=== PATIENT | male | born 1945 | race Caucasian/White ===

== ENCOUNTER 2018-04-22 19:19 | Emergency (ER) | payer BC, MEDICARE ==
[2018-04-22 19:20] VITALS: BMI 27.1
[2018-04-22 19:51] VITALS: TEMP 97.8; O2SAT 100
--- NOTE | 2018-04-22 20:24 | ED PDOC ---
Arrival/HPI - General Chief Complaint: GI Problem Time Seen by Provider: 04/22/18 19:44 Historian: Patient - History of Present Illness Narrative History of Present Illness (Text): 04/22/18 20:21 73 year old male, with no significant past medical history, presents with abdominal pain, since Saturday. Patient informs having associated cramping and vomiting as well. Patient states he has been "belching" a lot, and it seems to relieve the pain whenever he does. Patient denies any fever, chills, headache, dizziness, chest pain, shortness of breath, cough, diarrhea, back pain, neck pain, urinary/bowel changes, or any other complaint. Time/Duration: < week (3 days) Symptom Course: Unchanged Past Medical History - Provider Review Nursing Documentation Reviewed: Yes - Tetanus Immunization Tetanus Immunization: Unknown - Cardiac Hx Cardiac Disorders: Yes Hx Hypertension: Yes - Pulmonary Hx Respiratory Disorders: No - Neurological Hx Neurological Disorder: No - HEENT Hx HEENT Disorder: No - Renal Hx Renal Disorder: No - Endocrine/Metabolic Hx Endocrine Disorders: No - Hematological/Oncological Hx Blood Disorders: No - Integumentary Hx Dermatological Disorder: No - Musculoskeletal/Rheumatological Hx Musculoskeletal Disorders: No - Gastrointestinal Hx Gastrointestinal Disorders: Yes Other/Comment: HERNIA - Genitourinary/Gynecological Hx Genitourinary Disorders: No - Psychiatric Hx Psychophysiologic Disorder: No Hx Substance Use: No - Past Surgical History Past Surgical History: No Previous - Surgical History Other/Comment: REMOVAL OF CORN FROM FOOT - Suicidal Assessment Feels Threatened In Home Enviroment: No Family/Social History - Physician Review Nursing Documentation Reviewed: Yes Family/Social History: No Known Family HX Smoking Status: Never Smoked Hx Alcohol Use: No Hx Substance Use: No Hx Substance Use Treatment: No Allergies/Home Meds Allergies/Adverse Reactions: Allergies No Known Allergies Allergy (Verified 04/22/18 19:37) Home Medications: Home Meds Medication Instructions Recorded Confirmed Amlodipine Besylate [Norvasc] 7.5 mg PO DAILY 10/27/14 10/27/14 Aspirin [Aspirin Chewable] 81 mg PO DAILY 10/27/14 04/22/18 Losartan [Cozaar] 100 mg PO DAILY 04/22/18 04/22/18 Review of Systems - Physician Review All systems were reviewed & negative as marked: Yes - Review of Systems Constitutional: absent: Fevers, Night Sweats Respiratory: absent: SOB, Cough Cardiovascular: absent: Chest Pain Gastrointestinal: Abdominal Pain, Vomiting Musculoskeletal: absent: Back Pain, Neck Pain Neurological: absent: Headache, Dizziness Physical Exam Vital Signs Reviewed: Yes Vital Signs Temp Pulse Resp BP Pulse Ox 04/22/18 19:38 97.8 F 64 16 159/87 H 100 Temperature: Afebrile Blood Pressure: Hypertensive Pulse: Regular Respiratory Rate: Normal Appearance: Positive for: Well-Appearing, Non-Toxic, Comfortable Pain Distress: None Mental Status: Positive for: Alert and Oriented X 3 - Systems Exam Head: Present: Atraumatic, Normocephalic Pupils: Present: PERRL Extroacular Muscles: Present: EOMI Conjunctiva: Present: Normal Mouth: Present: Moist Mucous Membranes Neck: Present: Normal Range of Motion Respiratory/Chest: Present: Clear to Auscultation, Good Air Exchange. No: Respiratory Distress, Accessory Muscle Use Cardiovascular: Present: Regular Rate and Rhythm, Normal S1, S2. No: Murmurs Abdomen: Present: Hernias (Large inguinal hernia on left side). No: Tenderness, Distention, Normal Bowel Sounds (Distant Bowel Sounds) Back: Present: Normal Inspection Upper Extremity: Present: Normal Inspection. No: Cyanosis, Edema Lower Extremity: Present: Normal Inspection. No: Edema Neurological: Present: GCS=15, CN II-XII Intact, Speech Normal Skin: Present: Warm, Dry, Normal Color. No: Rashes Psychiatric: Present: Alert, Oriented x 3, Normal Insight, Normal Concentration Medical Decision Making ED Course and Treatment: 04/22/18 20:27 Impression: 73 year old male presents with abdominal pain. Plan: -- EKG -- Labs -- Urinalysis -- Reassess and disposition Prior Visits: Notes and results from previous visits were reviewed. Progress Notes: 04/23/18 21:05 oral and maxillofacial surgery resident was contacted. Came and reduced hernia. pt feesl better voided post no suazo required will dc to follow up with dr devlin - EKG Interpretation EKG Interpretation (Text): 04/23/18 03:58 sinus bradycardia rate 59 nssts changes - Scribe Statement The provider has reviewed the documentation as recorded by the Pamelaiblissy Butterfield Provider Scribe Attestation: All medical record entries made by the Scribe were at my direction and p ersonally dictated by me. I have reviewed the chart and agree that the record accurately reflects my personal performance of the history, physical exam, medical decision making, and the department course for this patient. I have also personally directed, reviewed, and agree with the discharge instructions and disposition. Disposition/Present on Arrival - Present on Arrival Any Indicators Present on Arrival: No History of DVT/PE: No History of Uncontrolled Diabetes: No Urinary Catheter: No History of Decub. Ulcer: No History Surgical Site Infection Following: None - Disposition Have Diagnosis and Disposition been Completed?: Yes Diagnosis: Inguinal hernia Disposition: HOME/ ROUTINE Disposition Time: 02:00 Condition: IMPROVED Discharge Instructions (ExitCare): Inguinal and Femoral (Groin) Hernias Referrals: Perez Devlin MD [Staff Provider] - Follow up with primary Forms: [employer] (Danish)
[2018-04-22 20:33] LABS: ALB/GLOB RATIO 1.2 (1.1-1.8); ALBUMIN 4.1 g/dL (3.0-4.8); ALT/SGPT 33 U/L (7-56); AMYLASE 153 U/L (35-125); AST/SGOT 26 U/L (17-59); BLOOD UREA NITROGEN 12 mg/dL (7-21); CALCIUM 10.1 mg/dL (8.4-10.5); GFR NON-AFRICAN AMERICAN > 60; LIPASE 106 U/L (23-300)
[2018-04-22 20:40] LABS: BASO # 0.01 K/mm3 (0.0-2.0); BASO % 0.2 % (0.0-3.0); EOS % 0.9 % (1.5-5.0); GRAN # 3.65 (1.4-6.5); HEMOGLOBIN 13.7 g/dL (14.0-18.0); LYMPH # 0.8 (1.2-3.4); LYMPH % 16.2 % (22.0-35.0); MEAN CELL VOLUME 82.2 fl (80.0-105.0); MEAN CORPUSCULAR HEMOGLOBIN 26.5 pg (25.0-35.0); MEAN CORPUSCULAR HGB CONC 32.2 g/dl (31.0-37.0); MEAN PLATELET VOLUME 10.5 fl (7.0-11.0); MONO # 0.2 (0.1-0.6); MONO % 4.7 % (1.0-6.0); RBC 5.17 10^6/uL (3.5-6.1); RED CELL DISTRIBUTION WIDTH 13.6 % (11.5-14.5); WHITE BLOOD COUNT 4.7 10^3/ul (4.5-11.0)
[2018-04-22 20:44] LABS: TROPONIN I 0.01 ng/mL
[2018-04-22 20:49] LABS: INR 1.05; PARTIAL THROMBOPLASTIN TIME 30.2 Seconds (25.1-36.5)
[2018-04-22] MEDS ORDERED: Iohexol 350 MG/100 ML VIAL ONE (23:09)
--- NOTE | 2018-04-23 01:28 | CP.PCM.CON ---
History of Present Illness - History of Present Illness History of Present Illness: Surgery: Dr. Chavez Reason for consult: left inguinal hernia, possible incarceration CC: bloating, gas, nausea since Saturday HPI: Patient is a 73 y/o male w/ pmhx of HTN, inguinal hernia, and BPH who presents to ED complaining of "stomach issues" since Saturday. He reports feeling some "discomfort" to the lower abdomen on the left which started Saturday. He noticed some abdominal bloating and reports would feel somewhat better with belching. He does report an episode of vomiting on Saturday which he took pepto bismol for and it helped the symptoms. He states he has had a difficulty having bowel movement for the past 3-4 days as well. He reports hard small stools which are abnormal for him. He reports passing flatus since Saturday however. He does state he has had a left groin bulge since 2010 that wound appear and go away which was then diagnosed by his PMD as a hernia. He reports noticing a large bulge to the L groin which has been persistent for the last year. He has not tried to "reduce" the bulge himself. He does state frequently he can feel gas and "rumbling" in his scrotum. He reports decreased po intake due to "abdominal discomfort", denies further episodes of vomiting. He denies chest pain, SOB, f/c, hematochezia. He chronically reports difficulty urination due to his BPH which he takes medications for. PMH: HTN, BPH, L inguinal hernia PSH: right foot surgery as a child Social: denies etoh, tobacco, drug use NKDA Review of Systems - Constitutional Constitutional: absent: Fatigue, Fever, Weight Loss - EENT Eyes: absent: Blurred Vision, Change in Vision Nose/Mouth/Throat: absent: Nasal Congestion, Sinus Pain - Cardiovascular Cardiovascular: absent: Chest Pain, Syncope - Respiratory Respiratory: absent: Cough, Wheezing - Gastrointestinal Gastrointestinal: Abdominal Pain, Belching, Bloating, Constipation. absent: Excessive Flatus, Heartburn, Hematochezia, Loose Stools, Nausea, Vomiting - Genitourinary Genitourinary: Difficulty Urinating. absent: Hematuria, Pyuria - Musculoskeletal Musculoskeletal: absent: Back Pain, Neck Pain - Integumentary Integumentary: absent: Skin Ulcer, Sores - Neurological Neurological: absent: Dizziness, Numbness - Psychiatric Psychiatric: absent: Confusion, Depression - Endocrine Endocrine: absent: Polydipsia, Polyphagia - Hematologic/Lymphatic Hematologic: absent: Easy Bleeding, Easy Bruising Past Patient History - Tetanus Immunizations Tetanus Immunization: Unknown - Past Social History Smoking Status: Never Smoked - CARDIAC Hx Cardiac Disorders: Yes Hx Hypertension: Yes - PULMONARY Hx Respiratory Disorders: No - NEUROLOGICAL Hx Neurological Disorder: No - HEENT Hx HEENT Problems: No - RENAL Hx Chronic Kidney Disease: No - ENDOCRINE/METABOLIC Hx Endocrine Disorders: No - HEMATOLOGICAL/ONCOLOGICAL Hx Blood Disorders: No - INTEGUMENTARY Hx Dermatological Problems: No - MUSCULOSKELETAL/RHEUMATOLOGICAL Hx Musculoskeletal Disorders: No - GASTROINTESTINAL Hx Gastrointestinal Disorders: Yes Other/Comment: HERNIA - GENITOURINARY/GYNECOLOGICAL Hx Genitourinary Disorders: No - PSYCHIATRIC Hx Psychophysiologic Disorder: No Hx Substance Use: No - SURGICAL HISTORY Other/Comment: REMOVAL OF CORN FROM FOOT Meds Allergies/Adverse Reactions: Allergies Allergy/AdvReac Type Severity Reaction Status Date / Time No Known Allergies Allergy Verified 04/22/18 19:37 Physical Exam - Constitutional Appears: Well, Non-toxic, No Acute Distress - Head Exam Head Exam: ATRAUMATIC, NORMOCEPHALIC - Eye Exam Eye Exam: EOMI, Normal appearance - ENT Exam ENT Exam: Mucous Membranes Moist - Respiratory Exam Respiratory Exam: NORMAL BREATHING PATTERN. absent: Respiratory Distress - Cardiovascular Exam Cardiovascular Exam: REGULAR RHYTHM. absent: Tachycardia - GI/Abdominal Exam GI & Abdominal Exam: Distended, Normal Bowel Sounds, Soft. absent: Guarding, Rebound, Tenderness - Rectal Exam Rectal Exam: Deferred - Exam Exam: Scrotal Swelling (to the left side 2/2 large inguinal hernia. no overlying skin changes to scrotum. Nontender to exam. ) - Extremities Exam Extremities exam: Positive for: normal inspection. Negative for: calf tenderness - Neurological Exam Neurological exam: Alert, Oriented x3 - Psychiatric Exam Psychiatric exam: Normal Affect, Normal Mood - Skin Skin Exam: Dry, Normal Color, Warm Results - Vital Signs Recent Vital Signs: Last Vital Signs Temp 97.8 F 04/22/18 19:38 Pulse 64 04/22/18 19:38 Resp 16 04/22/18 19:38 BP 159/87 H 04/22/18 19:38 Pulse Ox 100 04/22/18 19:38 - Labs Result Diagrams: 04/22/18 20:10 04/22/18 20:10 Labs: Laboratory Results - last 24 hr 04/22/18 04/22/18 04/22/18 20:10 20:10 20:10 WBC 4.7 D RBC 5.17 Hgb 13.7 L Hct 42.5 MCV 82.2 MCH 26.5 MCHC 32.2 RDW 13.6 Plt Count 135 MPV 10.5 Gran % 78.0 H Lymph % (Auto) 16.2 L [place] % (Auto) 4.7 Eos % (Auto) 0.9 L Baso % (Auto) 0.2 Gran # 3.65 Lymph # (Auto) 0.8 L [place] # (Auto) 0.2 Eos # (Auto) 0.0 Baso # (Auto) 0.01 PT 12.0 INR 1.05 APTT 30.2 Sodium 139 Potassium 4.0 Chloride 104 Carbon Dioxide 27 Anion Gap 12 BUN 12 Creatinine 0.8 Est GFR ( Amer) > 60 Est GFR (Non-Af Amer) > 60 Random Glucose 123 H Calcium 10.1 Total Bilirubin 0.9 AST 26 ALT 33 Alkaline Phosphatase 78 Lactate Dehydrogenase 460 Total Creatine Kinase 59 Troponin I 0.01 D Total Protein 7.7 Albumin 4.1 Globulin 3.5 Albumin/Globulin Ratio 1.2 Amylase 153 H Lipase 106 - Impressions Impression: CT scan with large L inguinal hernia, appeared to be stool filled colon within hernia, possible incarceration. no mention of obstruction. stool throughout colon. Assessment & Plan - Assessment and Plan (Free Text) Assessment: 73 y/o male w/ Left inguinal hernia Plan: -able to achieve complete hernia reduction with traction and constant pressure after patient placed in trendelenberg position -patient tolerated reduction of L inguinal hernia well -no abdominal pain post reduction -cleared for d/c from surgical standpoint in regards to hernia -patient can f/u with Dr. Chavez as outpatient in office for elective hernia repair planning -avoid heavy lifting or straining -scrotal support -will d/w Dr. Chavez -discussed plan with ER attending Vivek PGY4 - Date & Time Date: 04/23/18 Time: 01:36
[2018-04-23 02:01] LABS: URINE BILIRUBIN NEGATIVE (NEGATIVE); URINE BLOOD TRACE-INTACT (NEGATIVE); URINE GLUCOSE (UA) NEGATIVE (NEGATIVE); URINE LEUKOCYTE ESTERASE NEGATIVE Leu/uL (NEGATIVE); URINE PROTEIN NEGATIVE mg/dL (<30 mg/dL); URINE UROBILINOGEN 0.2 E.U./dL (<1 E.U./dL)
[2018-04-23 02:06] VITALS: BP 118/69; PULSE 79; RESP 18
[2018-04-23 02:15] LABS: URINE APPEARANCE CLEAR (CLEAR); URINE COLOR YELLOW (YELLOW)
[2018-04-23 02:16] LABS: URINE RBC 0 - 2 /hpf (0-2)
[2018-04-23 02:17] LABS: URINE EPITHELIAL CELLS 0 - 2 /hpf (0-5); URINE WBC 0 - 2 /hpf (0-6)
--- NOTE | 2018-04-23 09:14 | CARD ---
APPROVED REPORT Date of service: 04/22/2018 EKG Measurement Heart [id number] <Conclusion> Sinus bradycardia with sinus arrhythmia with 1st degree AV block Moderate voltage criteria for LVH, may be normal variant Nonspecific T wave abnormality Abnormal ECG
--- NOTE | 2018-04-23 09:50 | CT ---
Date of service: 04/22/2018 PROCEDURE: CT Abdomen and Pelvis with contrast HISTORY: Abdominal pain. COMPARISON: None. TECHNIQUE: Intravenous contrast dose: 100 cc Omnipaque 350. Radiation dose: Total exam DLP = 355.48 mGy-cm. This CT exam was performed using one or more of the following dose reduction techniques: Automated exposure control, adjustment of the mA and/or kV according to patient size, and/or use of iterative reconstruction technique. FINDINGS: LOWER THORAX: Unremarkable. LIVER: Unremarkable. No gross lesion or ductal dilatation. GALLBLADDER AND BILE DUCTS: Unremarkable. PANCREAS: Unremarkable. No gross lesion or ductal dilatation. SPLEEN: Unremarkable. ADRENALS: Unremarkable. No mass. KIDNEYS AND URETERS: Unremarkable. No hydronephrosis. No solid mass. VASCULATURE: Unremarkable. No aortic aneurysm. BOWEL: Large left inguinal hernia containing colon and free fluid. The hernia also contains mesentery and vascular structures. APPENDIX: Normal appendix. PERITONEUM: Low volume intra-abdominal and pelvic ascites.. No free air. LYMPH NODES: Unremarkable. No enlarged lymph nodes. BLADDER: Unremarkable. REPRODUCTIVE: Unremarkable. BONES: No acute fracture. OTHER FINDINGS: Mesenteric " whirl sign", findings consistent with obstruction likely related to the large left inguinal hernia. IMPRESSION: Large left inguinal hernia, associated secondary signs consistent with closed loop obstruction within the hernia. Additional benign and/or incidental findings described above. Concordant results (preliminary interpretation) provided by Adocia. Procedure Completed: 23:23 Preliminary Report: Dictated and Authenticated: 23:50 Final Interpretation: 09:46. April 23, 2018
== END 2018-04-23 02:00 | disposition home or self-care (01) ==
LOC: ED 19:19
DX: K40.90 Unilateral inguinal hernia, without obstruction or gangrene, not specified as recurrent (principal); I10 Essential (primary) hypertension
CPT/HCPCS: 74177; 80053; 81001; 82150; 82550; 83615; 83690; 84484; 85025; 85610; 85730; 93005; 99285; Q9967